=== PATIENT | male | born 1960 | race Caucasian/White ===

== ENCOUNTER → 2017-07-22 | Outpatient (CLI) | payer OTHER ==
[2016-04-07 16:56] VITALS: BP 141/86
--- NOTE | 2017-07-22 15:53 | RAD ---
HISTORY: Shoulder pain. Study: Complete three view series of the left shoulder. Comparison: None. Findings: The clavicle and AC joint are intact. There is mild left AC and shoulder joint osteoarthrit is observed. No Hill-Sachs deformity or bony Bankhart lesion is seen. There is no lytic bony lesion o r bone forming lesions observed. No aggressive periosteal reaction is evident. No acute fracture, sub luxation or dislocation can be identified. The visualized portions of the scapula are unremarkable. In addition, the visualized portions of the upper lung stein are clear. Should the patient's clinical symptoms persist, followup MR imaging is recommended. 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 Otherwise, negative shoulder joint examination. Reported By:
--- NOTE | 2017-07-23 09:13 | RAD ---
History: Back pain. Exam: Complete AP and lateral view series of the thoracic spine. Comparison: None. Findings: There is normal spinal alignment. Subtle superior endplate bony deformities of the T6 throu gh T11 superior endplates are appreciated which may reflect old bony injuries. However, MR imaging of the T-spine is recommended to exclude acute T-spine fractures in this setting. There is no evidence for a T-spine subluxation. No thoracic vertebral endplate erosive changes are observed. The thoracic disc space height is preserved, diffusely. No sclerotic or degenerative endplate vertebral body mead es are seen. No lytic and/or bone forming bony lesions are noted. No other radiographic thoracic abno rmalities are seen. Impression: Subtle superior endplate bony deformities of the T6 through T11 superior endplates apprec iated which may reflect old bony injuries/fractures. However, MR imaging of the T-spine is recommende d to exclude acute T-spine fractures in this setting. Reported By:
== END ==
LOC: RAD 12:59
PROVIDERS: ATTEND Nurse Practitioner Family
DX: M19.012 Primary osteoarthritis, left shoulder (principal)
CPT/HCPCS: 72072; 73030

== ENCOUNTER → 2017-08-19 | Outpatient (CLI) | payer OTHER ==
[2016-04-07 16:56] VITALS: BP 141/86
--- NOTE | 2017-08-19 16:23 | MRI ---
HISTORY: Chronic thoracic spine pain. Noncontrast MRI examination of the thoracic spine. Technique: Multiplanar multi-sequence MRI of the thoracic spine was obtained. Sagittal T1, sagittal T2, and stir weighted images, axial T1, and axial T2 images were obtained. Findings: The thoracic spine demonstrates normal alignment with the expected signal characteristics of the bone marrow. There is no evidence for acute fracture, compression deformity, or aggressive marrow lesion. No abnormal disc signal is seen. There is normal spinal cord signal seen without abnormal T2 signal, cord expansion, or spinal cord contusion. No intrathecal mass lesion or intrathecal hemorrhage is se en. No evidence of degenerative disk disease can be identified. The surrounding thoracic soft tissue s are unremarkable. The visible aorta is without aneurysm or additional abnormality. No other bony or soft tissue abnormalities are seen. IMPRESSION: Negative thoracic spine MRI exam. However, there is susceptibility artifact seen within the lower cer vical spine with possible T2 intense signal seen within the lower cervical spinal cord which can be b mayda evaluated with dedicated C-spine MRI imaging (please see the prior cervical spine MRI report silva [facility] 04/07/2016 for further details of this finding). No acute bony injury seen involving the thoracic spine. No thoracic spine cord edema is observed. Reported By:
== END ==
LOC: RAD 10:37
PROVIDERS: ATTEND Nurse Practitioner Family
DX: M54.6 Pain in thoracic spine (principal)
CPT/HCPCS: 72146

== ENCOUNTER → 2018-03-17 | Outpatient (CLI) | payer OTHER ==
[2016-04-07 16:56] VITALS: BP 141/86
--- NOTE | 2018-03-17 09:29 | MRI ---
MRI lumbar spine without contrast Indication: Lower back pain with numbness to legs Technique: Multiplanar, multi sequence imaging of the lumbar spine without IV contrast administration . Findings: Lumbar spine alignment is maintained. There is disc desiccation disc space loss at L4-5 and L5-S1. There is no significant marrow signal abnormality vertebral height loss or endplate degenerat sabine change noted within the lumbar spine. No prevertebral or paraspinal soft tissue swelling or fluid collection. Conus has a normal termination. Visualized abdomen and pelvis demonstrates no acute infl ammatory process. There is very mild aneurysmal dilatation of the infrarenal abdominal aorta measurin g 2.4 x 2.1 cm. There is also moderate atheromatous plaque noted within the descending thoracic and a bdominal aorta. At T12-L1 unremarkable At L1-2 unremarkable At L2-3 unremarkable At L3-4 mild broad-based disc bulge and facet arthropathy causes very mild spinal canal stenosis with out bony neural foraminal narrowing. At L4-5 broad-based disc bulge and facet arthropathy causes [id number] spinal canal stenosis wi th moderate right lateral recess compression. There is moderate right and left-sided bony neural fora isidra stenosis. At L5-S1 broad-based disc bulge with right greater than left moderate to severe facet arthropathy cau ses moderate spinal canal stenosis with right greater than left lateral recess narrowing and associat ed moderate to severe right and moderate left-sided bony neural foraminal stenosis. Impression: Multilevel discogenic degenerative change and facet arthropathy most severely affecting L 4-5 and L5-S1 as described above. Refer to above for level by level description of degenerative findi ngs within the lumbar spine. Reported By:
== END ==
LOC: RAD 08:22
PROVIDERS: ATTEND Internal Medicine
DX: M51.36 Other intervertebral disc degeneration, lumbar region (principal)
CPT/HCPCS: 72148